=== PATIENT | male | born 1995 | race African-American/Black ===

== ENCOUNTER 2018-10-11 22:05 | Emergency (ER) | payer SELFPAY ==
[2018-10-11] MEDS ORDERED: IBUPROFEN 600 MG TABLET PO ONE (23:59)
[2018-10-11] MEDS ORDERED: PENICILLIN V POTASSIUM 500 MG TABLET PO ONE (23:59)
--- NOTE | 2018-10-12 00:04 | ER Document Report ---
HPI - HPI Patient complains to provider of: toothache Time Seen by Provider: 10/11/18 23:27 Pain Level: 5 Context: Patient is a 23-year-old male presents to the emergency department complaining of generalized lower tooth pain. Patient states he has not been to the dentist for multiple years and feels as though his bottom right teeth are "infected." Patient denies any fever, chills, any other symptoms. Past medical history: None Medications: None Allergies: None Patient states last time he took Tylenol was around 1900 hrs. this evening. Past Medical History - General Information source: Patient - Social History Smoking Status: Unknown if Ever Smoked Family History: Reviewed & Not Pertinent Pulmonary Medical History: Reports: Hx Asthma Vertical Provider Document - CONSTITUTIONAL Agree With Documented VS: Yes Notes: GENERAL: Alert, interacts well. No acute distress. HEAD: Normocephalic, atraumatic. EYES: Pupils equal, round, and reactive to light. Extraocular movements intact. ENT: Oral mucosa moist, tongue midline. Patient has very poor dentition with multiple obvious dental caries the tooth in question is #31. Gums are erythematous but no areas of fluctuance or induration noted. No Ezequiel's angina noted NECK: Full range of motion. Supple. Trachea midline. No lymphadenopathy appreciated LUNGS: Clear to auscultation bilaterally, no wheezes, rales, or rhonchi. No respiratory distress. HEART: Regular rate and rhythm. No murmur ABDOMEN: Soft, non-tender. Non-distended. Bowel sounds present in all 4 quadrants. EXTREMITIES: Moves all 4 extremities spontaneously. No edema, normal radial and dorsalis pedis pulses bilaterally. No cyanosis. BACK: no cervical, thoracic, lumbar midline tenderness. No saddle anesthesia, normal distal neurovascular exam. NEUROLOGICAL: Alert and oriented x3. Normal speech. cranial nerves II through XII grossly intact. PSYCH: Normal affect, normal mood. SKIN: Warm, dry, normal turgor. No rashes or lesions noted. - INFECTION CONTROL TRAVEL OUTSIDE OF THE [place] IN LAST 30 DAYS: No Course - Re-evaluation Re-evalutation: 10/12/18 00:01 Patient states he has an appointment with his dentist this coming Wednesday. Discussed use of antibiotics and home Tylenol and Motrin. Patient voices understanding. Patient is stable for discharge. - Vital Signs Vital signs: Temp Pulse Resp BP Pulse Ox 99.0 F 67 19 129/82 H 98 10/11/18 22:51 10/11/18 22:51 10/11/18 22:51 10/11/18 22:51 10/11/18 22:51 Discharge - Discharge Clinical Impression: Toothache, Dental caries Condition: Stable Disposition: HOME, SELF-CARE Instructions: Penicillin V K ([facility]), [facility], Toothache ([facility]) Additional Instructions: As we discussed you have been seen and treated in the emergency department for a toothache. Please take [id number] Tylenol and Motrin for your pain. Please take antibiotics as prescribed. Please return to the emergency room if you have any other concerning symptoms. His follow-up with your dentist as soon as possible. Prescriptions: Penicillin V Potassium [Penicillin Vk 500 mg Tablet] 500 mg PO BID #20 tablet
[2018-10-12 00:23] VITALS: BP 115/76
== END 2018-10-12 00:38 | disposition home or self-care (01) ==
LOC: ER 22:05
DX: K08.89 Other specified disorders of teeth and supporting structures (principal); K02.9 Dental caries, unspecified
CPT/HCPCS: 99282